=== PATIENT | male | born 1950 | race African-American/Black ===

== ENCOUNTER → 2017-06-18 | Outpatient (CLI) | payer MEDICARE, OTHER ==
[~2017-06-18] MED LIST: ALBUTEROL SULF 2.5 MG/0.5ML(0.5%) NEB SOLN ONE
== END ==
LOC: RT 08:17
PROVIDERS: ATTEND Internal Medicine Pulmonary Disease
DX: J44.9 Chronic obstructive pulmonary disease, unspecified (principal)
CPT/HCPCS: 94060; 94640

== ENCOUNTER → 2017-09-07 | Outpatient (CLI) | payer MEDICARE, OTHER ==
[2017-09-07 10:15] LABS: Basophils # (auto) 0.1 uL; Basophils % (auto) 1.4 % (0.0-2.0); Eosinophils # (auto) 0.4 uL; Eosinophils % (auto) 6.4 % (0.0-7.0); Hemoglobin 16.1 g/dL (13.5-17.5); Lymphocytes # (auto) 1.5 uL; Lymphocytes % (auto) 25.7 % (10.0-50.0); Mean Corpuscular Hemoglobin 32.8 pg (28.0-32.0); Mean Corpuscular Hgb Conc. 34.1 g/dL (32.0-36.0); Monocytes # (auto) 0.8 uL; Monocytes % (auto) 13.1 % (0.0-12.0); Neutrophils # (auto) 3.1 uL; Neutrophils % (auto) 53.4 % (37.0-80.0); Platelet Count (auto) 247 10^3/uL (140-450); Red Cell Distribution Width 13.6 % (11.8-14.3); White Blood Cell 5.9 10^3/uL (4.4-10.8)
[2017-09-07 10:37] LABS: Albumin 3.6 g/dL (3.4-5.0); BUN/Creatinine Ratio 12.3; Bilirubin, Total 0.4 mg/dL (0.2-1.0); Calcium 8.9 mg/dL (8.5-10.1); Potassium 4.1 mmol/L (3.5-5.1); Total Protein 7.4 g/dL (6.4-8.2)
[2017-09-07 10:50] LABS: Urine Blood Negative /uL (Negative); Urine Specific Gravity 1.013 (1.001-1.035)
== END | disposition home or self-care (01) ==
LOC: LAB 09:53
PROVIDERS: ATTEND Nurse Practitioner
DX: E78.5 Hyperlipidemia, unspecified (principal); R35.1 Nocturia; R73.09 Other abnormal glucose
CPT/HCPCS: 36415; 80053; 80061; 81003; 83036; 84153; 84443; 85025

== ENCOUNTER → 2017-10-08 | Outpatient (CLI) | payer MEDICARE, OTHER ==
[2017-10-08 09:12] LABS: Basophils # (auto) 0.1 uL; Basophils % (auto) 1.1 % (0.0-2.0); Eosinophils # (auto) 0.4 uL; Eosinophils % (auto) 6.5 % (0.0-7.0); Hematocrit 49.1 % (41.0-53.0); Hemoglobin 16.3 g/dL (13.5-17.5); Lymphocytes # (auto) 1.7 uL; Lymphocytes % (auto) 25.8 % (10.0-50.0); Mean Corpuscular Hemoglobin 32.1 pg (28.0-32.0); Mean Corpuscular Hgb Conc. 33.2 g/dL (32.0-36.0); Mean Corpuscular Volume 96.7 fL (80.0-100.0); Monocytes # (auto) 0.8 uL; Neutrophils # (auto) 3.7 uL; Neutrophils % (auto) 54.6 % (37.0-80.0); Nucleated Red Blood Cells % 0.1 %; Platelet Count (auto) 242 10^3/uL (140-450); Red Blood Cells 5.08 10^6/uL (4.5-5.90); Red Cell Distribution Width 13.6 % (11.8-14.3); White Blood Cell 6.7 10^3/uL (4.4-10.8)
== END | disposition home or self-care (01) ==
LOC: LAB 08:52
PROVIDERS: ATTEND Nurse Practitioner
DX: E11.9 Type 2 diabetes mellitus without complications (principal); R19.7 Diarrhea, unspecified; J44.9 Chronic obstructive pulmonary disease, unspecified; M19.90 Unspecified osteoarthritis, unspecified site; R79.89 Other specified abnormal findings of blood chemistry; E78.5 Hyperlipidemia, unspecified
CPT/HCPCS: 36415; 85025; 86141

== ENCOUNTER → 2017-10-22 | Outpatient (CLI) | payer MEDICARE, OTHER | LOC: LAB 11:31 | PROVIDERS: ATTEND Nurse Practitioner | DX: E11.9 Type 2 diabetes mellitus without complications (principal); R19.7 Diarrhea, unspecified; M19.90 Unspecified osteoarthritis, unspecified site | CPT/HCPCS: 82270 ==

== ENCOUNTER → 2017-10-28 | Outpatient (CLI) | payer MEDICARE, OTHER | END | disposition home or self-care (01) | LOC: LAB 15:41 | PROVIDERS: ATTEND Family Medicine | DX: E11.9 Type 2 diabetes mellitus without complications (principal); M19.90 Unspecified osteoarthritis, unspecified site | CPT/HCPCS: 36415; 83036 ==

== ENCOUNTER → 2017-11-11 | Outpatient (CLI) | payer MEDICARE, OTHER | END | disposition home or self-care (01) | LOC: LAB 11:47 | PROVIDERS: ATTEND Family Medicine | DX: E11.9 Type 2 diabetes mellitus without complications (principal); J44.9 Chronic obstructive pulmonary disease, unspecified | CPT/HCPCS: 36415; 82565; 84520 ==

== ENCOUNTER 2018-01-02 10:48 | Emergency (ER) | payer MEDICARE, OTHER ==
[~2018-01-02] VITALS: Ht 172.7 cm; Wt 83.9 kg
[2018-01-02] MEDS ORDERED: METHOCARBAMOL 500 MG TAB PO ONE (12:45)
[2018-01-02] MEDS ORDERED: HYDROcodone-ACET 10/325MG TAB PO ONE (12:45)
[2018-01-02 14:21] VITALS: BP 116/69
[2018-01-02] MEDS ORDERED: KETOROLAC TROMETH 30 MG/ML 1ML VIAL IM ONE (14:45)
== END 2018-01-02 15:21 | disposition home or self-care (01) ==
LOC: ER 10:48
DX: M48.061 Spinal stenosis, lumbar region without neurogenic claudication (principal); J44.9 Chronic obstructive pulmonary disease, unspecified; M19.90 Unspecified osteoarthritis, unspecified site; Z88.8 Allergy status to other drugs, medicaments and biological substances
CPT/HCPCS: 72131; 93005; 96372; 99284; J1885

== ENCOUNTER → 2018-09-26 | Outpatient (CLI) | payer MEDICARE, OTHER ==
[2018-09-26 08:44] LABS: Urine WBC None Seen /hpf (0 - 3)
[2018-09-26 08:52] LABS: Basophils # (auto) 0.1 uL; Basophils % (auto) 0.9 % (0.0-2.0); Eosinophils # (auto) 0.2 uL; Eosinophils % (auto) 2.8 % (0.0-7.0); Hematocrit 46.4 % (41.0-53.0); Hemoglobin 15.7 g/dL (13.5-17.5); Lymphocytes # (auto) 1.6 uL; Lymphocytes % (auto) 25.3 % (10.0-50.0); Mean Corpuscular Hemoglobin 33.1 pg (28.0-32.0); Mean Corpuscular Hgb Conc. 33.9 g/dL (32.0-36.0); Mean Corpuscular Volume 97.6 fL (80.0-100.0); Monocytes # (auto) 0.9 uL; Monocytes % (auto) 13.3 % (0.0-12.0); Neutrophils # (auto) 3.7 uL; Neutrophils % (auto) 57.7 % (37.0-80.0); Platelet Count (auto) 218 10^3/uL (140-450); Red Blood Cells 4.75 10^6/uL (4.5-5.90); Red Cell Distribution Width 13.8 % (11.8-14.3); White Blood Cell 6.4 10^3/uL (4.4-10.8)
[2018-09-26 08:53] LABS: Urine Bacteria FEW /hpf (None Seen); Urine Blood Negative /uL (Negative); Urine Specific Gravity 1.011 (1.001-1.035)
[2018-09-26 09:11] LABS: Albumin 3.5 g/dL (3.4-5.0); Calcium 8.9 mg/dL (8.5-10.1)
[2018-09-26 09:14] LABS: BUN/Creatinine Ratio 10.4; Bilirubin, Total 0.3 mg/dL (0.2-1.0); Total Protein 7.1 g/dL (6.4-8.2)
== END | disposition home or self-care (01) ==
LOC: LAB 08:02
PROVIDERS: ATTEND Nurse Practitioner
DX: E78.5 Hyperlipidemia, unspecified (principal)
CPT/HCPCS: 36415; 80053; 80061; 81001; 84443; 85025

== ENCOUNTER → 2019-03-23 | Outpatient (CLI) | payer MEDICARE, OTHER ==
[2019-03-23 09:10] LABS: Urine Bacteria NONE SEEN /hpf (None Seen); Urine Blood Negative /uL (Negative); Urine Specific Gravity 1.011 (1.001-1.035); Urine WBC <1 /hpf (0 - 3)
[2019-03-23 09:21] LABS: Basophils # (auto) 0.1 uL; Basophils % (auto) 1.2 % (0.0-2.0); Eosinophils # (auto) 0.2 uL; Eosinophils % (auto) 3.6 % (0.0-7.0); Hematocrit 48.7 % (41.0-53.0); Hemoglobin 16.5 g/dL (13.5-17.5); Lymphocytes # (auto) 1.6 uL; Lymphocytes % (auto) 26.8 % (10.0-50.0); Mean Corpuscular Volume 97.3 fL (80.0-100.0); Monocytes # (auto) 0.8 uL; Monocytes % (auto) 12.4 % (0.0-12.0); Neutrophils # (auto) 3.4 uL; Platelet Count (auto) 231 10^3/uL (140-450); Red Cell Distribution Width 14.5 % (11.8-14.3); White Blood Cell 6.1 10^3/uL (4.4-10.8)
[2019-03-23 09:39] LABS: Albumin 3.5 g/dL (3.4-5.0); BUN/Creatinine Ratio 14.8; Calcium 9.1 mg/dL (8.5-10.1); Potassium 4.1 mmol/L (3.5-5.1)
[2019-03-23 09:42] LABS: Bilirubin, Total 0.5 mg/dL (0.2-1.0); Total Protein 7.3 g/dL (6.4-8.2)
== END | disposition home or self-care (01) ==
LOC: LAB 08:32
PROVIDERS: ATTEND Nurse Practitioner
DX: E78.5 Hyperlipidemia, unspecified (principal); R79.89 Other specified abnormal findings of blood chemistry
CPT/HCPCS: 36415; 80053; 80061; 81001; 83036; 84443; 85025

== ENCOUNTER → 2019-05-08 | Outpatient (CLI) | payer MEDICARE, OTHER | END | disposition home or self-care (01) | LOC: RT 08:39 | PROVIDERS: ATTEND Internal Medicine Pulmonary Disease | DX: J44.9 Chronic obstructive pulmonary disease, unspecified (principal) | CPT/HCPCS: 94060; J7611 ==

== ENCOUNTER 2022-04-13 08:20 | Inpatient (IN) | payer MEDICARE, OTHER ==
[~2022-04-13] VITALS: Ht 172.7 cm; Wt 73.4 kg
[2022-04-13] MEDS ORDERED: ASPirin 81 mg TAB PO ONE (08:45)
[2022-04-13 08:59] LABS: Basophils # (auto) 0 10 ^3/uL (0-0.2); Basophils % (auto) 0.4 % (0.0-2.0); Eosinophils # (auto) 0.2 10 ^3/uL (0-0.8); Eosinophils % (auto) 2.6 % (0.0-7.0); Hematocrit 45.9 % (41.0-53.0); Hemoglobin 15.1 g/dL (13.5-17.5); Lymphocytes # (auto) 2.1 10 ^3/uL (0.4-5.4); Lymphocytes % (auto) 25.4 % (10.0-50.0); Mean Corpuscular Hemoglobin 31.5 pg (28.0-32.0); Mean Corpuscular Hgb Conc. 32.9 g/dL (32.0-36.0); Mean Corpuscular Volume 95.6 fL (80.0-100.0); Monocytes # (auto) 0.8 10 ^3/uL (0-1.3); Monocytes % (auto) 9.1 % (0.0-12.0); Neutrophils # (auto) 5.1 10 ^3/uL (1.6-8.6); Neutrophils % (auto) 62.5 % (37.0-80.0); Nucleated Red Blood Cells % 0.1 %; Red Blood Cells 4.79 10^6/uL (4.5-5.90); Red Cell Distribution Width 14.8 % (11.8-14.3); White Blood Cell 8.2 10^3/uL (4.4-10.8)
[2022-04-13 09:10] LABS: Albumin 3.4 g/dL (3.4-5.0); Calcium 8.8 mg/dL (8.5-10.1); Potassium 4.1 mmol/L (3.5-5.1)
[2022-04-13 09:14] LABS: Bilirubin, Total 0.6 mg/dL (0.2-1.0); Total Protein 6.6 g/dL (6.4-8.2)
[2022-04-13 11:24] LABS: BUN/Creatinine Ratio 16.8
[2022-04-13] MEDS ORDERED: NITROGLYCERIN 0.4 MG SL TAB SL PRN (13:45)
[2022-04-13] MEDS ORDERED: hydrALAZINE HCL 20 MG/ML VL IV PRN (13:45)
[2022-04-13] MEDS ORDERED: MORPHINE SULFATE INJ 2 MG/ml SYRG IV PRN (13:45)
[2022-04-13] MEDS ORDERED: DEXTROSE (50%) 50ML SYRG IV PRN (14:00)
[2022-04-13 14:29] LABS: Cholesterol 126 mg/dL (< 200)
[2022-04-13 14:31] LABS: HDL Cholesterol 42 mg/dL (40-59); LDL Cholesterol 84 mg/dL (< 100); Triglycerides 74 mg/dL (< 150)
[2022-04-13] MEDS: InsuLIN REG 1unit/0.01ml Soln (100units/ml) SC SCH ×2 (17:00→22:17)
[2022-04-13] MEDS: ACCU-CHEK COMFORT CURVE STRIP VI SCH ×2 (17:08→22:13)
[2022-04-13 18:39] LABS: INR 0.98 (0.9-1.15)
[2022-04-13 19:38] LABS: Urine Bacteria NONE SEEN /hpf (None Seen); Urine Blood Negative /uL (Negative); Urine Specific Gravity 1.008 (1.001-1.035); Urine WBC <1 /hpf (0 - 3)
[2022-04-13 22:00] VITALS: BP 108/64
[2022-04-13] MEDS: ATORVASTATIN 20 MG TAB PO SCH (22:18)
[2022-04-13 22:48] VITALS: BP 108/64
[2022-04-13] MEDS ORDERED: TEMAZEPAM 15 MG CAP PO ONE (23:00)
[2022-04-13] MEDS ORDERED: SIMV-8 PO (23:04)
[2022-04-13] MEDS ORDERED: ATEN50TA PO (23:04)
[2022-04-13] MEDS ORDERED: CLON0.5T3 PO (23:04)
[2022-04-13] MEDS ORDERED: FLUT500M2 INH (23:04)
[2022-04-13] MEDS ORDERED: TAMS0.4C36 PO (23:04)
[2022-04-13] MEDS ORDERED: PANT40T PO (23:04)
[2022-04-13] MEDS ORDERED: ASPI81CH74 PO (23:04)
[2022-04-13] MEDS ORDERED: TIOT17SP INH (23:04)
[2022-04-14 05:00] VITALS: BP 109/66
[2022-04-14 06:10] LABS: Basophils # (auto) 0 10 ^3/uL (0-0.2); Basophils % (auto) 0.5 % (0.0-2.0); Eosinophils # (auto) 0.2 10 ^3/uL (0-0.8); Eosinophils % (auto) 2.7 % (0.0-7.0); Hematocrit 43.8 % (41.0-53.0); Hemoglobin 14.6 g/dL (13.5-17.5); Lymphocytes % (auto) 25.1 % (10.0-50.0); Mean Corpuscular Hgb Conc. 33.4 g/dL (32.0-36.0); Mean Corpuscular Volume 95.8 fL (80.0-100.0); Monocytes # (auto) 0.9 10 ^3/uL (0-1.3); Monocytes % (auto) 11.3 % (0.0-12.0); Neutrophils # (auto) 4.9 10 ^3/uL (1.6-8.6); Neutrophils % (auto) 60.4 % (37.0-80.0); Red Blood Cells 4.58 10^6/uL (4.5-5.90); Red Cell Distribution Width 14.9 % (11.8-14.3)
[2022-04-14 06:22] LABS: Potassium 4.1 mmol/L (3.5-5.1)
[2022-04-14] MEDS: InsuLIN REG 1unit/0.01ml Soln (100units/ml) SC SCH ×4 (06:29→21:55)
[2022-04-14] MEDS: ACCU-CHEK COMFORT CURVE STRIP VI SCH ×4 (06:29→21:54)
[2022-04-14 06:36] LABS: Albumin 3.1 g/dL (3.4-5.0); Bilirubin, Total 0.5 mg/dL (0.2-1.0); Calcium 8.9 mg/dL (8.5-10.1); Total Protein 6.7 g/dL (6.4-8.2)
[2022-04-14] MEDS ORDERED: ADENOSINE 69 MG in GIVE UN-DILUTED 0 ML IV STA (08:17)
[2022-04-14 08:30] VITALS: BP 109/63
[2022-04-14] MEDS ORDERED: REGADENOSON 0.4 MG/5 ML SYRG IV ONE (08:30)
[2022-04-14 08:39] VITALS: BP 130/67
[2022-04-14] MEDS: ASPirin 81 mg TAB PO SCH (09:56)
[2022-04-14 12:20] VITALS: BP 113/68
[2022-04-14 16:25] VITALS: BP 125/69
[2022-04-14] MEDS ORDERED: ALBUTEROL SULF 2.5 MG/0.5ML(0.5%) NEB SOLN NEB PRN (21:00)
[2022-04-14] MEDS: ATORVASTATIN 20 MG TAB PO SCH (21:54)
[2022-04-14 22:00] VITALS: BP 93/69
[2022-04-14] MEDS ORDERED: TEMAZEPAM 15 MG CAP PO ONE (22:45)
[2022-04-15 03:13] VITALS: BP 93/69
[2022-04-15 05:00] VITALS: BP 98/50
[2022-04-15] MEDS: ACCU-CHEK COMFORT CURVE STRIP VI SCH ×2 (06:35→11:30)
[2022-04-15] MEDS: InsuLIN REG 1unit/0.01ml Soln (100units/ml) SC SCH ×2 (06:35→11:30)
[2022-04-15 08:25] VITALS: BP 111/52
[2022-04-15] MEDS: ASPirin 81 mg TAB PO SCH (09:42)
[2022-04-15 12:20] VITALS: BP 117/70
[2022-04-15 14:38] VITALS: BP 111/65
== END 2022-04-15 17:19 | disposition home or self-care (01) | DRG 303 ==
LOC: ER 08:20 → TELE 13:41 → TELE-WESTW 21:35
PROVIDERS: ADMIT Registered Nurse; ATTEND Family Medicine
DX: I25.10 Atherosclerotic heart disease of native coronary artery without angina pectoris (principal); E78.5 Hyperlipidemia, unspecified; Z20.822 Contact with and (suspected) exposure to COVID-19; E03.9 Hypothyroidism, unspecified; M19.90 Unspecified osteoarthritis, unspecified site; N18.2 Chronic kidney disease, stage 2 (mild); I44.0 Atrioventricular block, first degree; E11.22 Type 2 diabetes mellitus with diabetic chronic kidney disease; E78.00 Pure hypercholesterolemia, unspecified; I12.9 Hypertensive chronic kidney disease with stage 1 through stage 4 chronic kidney disease, or unspecified chronic kidney disease; J44.9 Chronic obstructive pulmonary disease, unspecified; Z82.49 Family history of ischemic heart disease and other diseases of the circulatory system; Z83.3 Family history of diabetes mellitus; Z87.891 Personal history of nicotine dependence; Z79.899 Other long term (current) drug therapy; Z90.49 Acquired absence of other specified parts of digestive tract
CPT/HCPCS: 36415; 71046; 78452; 80053; 80061; 81001; 82962; 83036; 84443; 84484; 85025; 85379; 85610; 93005; 93017; 93306; 94640; G0378; J0153; J1815

== ENCOUNTER 2024-10-30 09:26 | Inpatient (IN) | payer OTHER, MEDICARE ==
[~2024-10-30] VITALS: Ht 170.2 cm; Wt 79.6 kg
[~2024-10-30 09:26] MED LIST changes: -ALBUTEROL SULF 2.5 MG/0.5ML(0.5%) NEB SOLN ONE; +ASPI81CH74 PO; +ATEN50TA PO; +CLON0.5T3 PO; +FLUT500M2 INH; +PANT40T PO; +SIMV20TA20 PO; +TAMS0.4C39 PO; +TIOT17SP INH
[2024-10-30 10:00] VITALS: RESP 20
[2024-10-30] MEDS: MAGNESIUM SULFATE 1GM/100ML 100 ML IV ONE (10:14)
[2024-10-30 10:22] LABS: Basophils # (auto) 0 10 ^3/uL (0-0.2); Basophils % (auto) 0.3 % (0.0-2.0); Eosinophils # (auto) 0 10 ^3/uL (0-0.8); Hemoglobin 13.2 g/dL (13.5-17.5); Lymphocytes # (auto) 0.2 10 ^3/uL (0.4-5.4); Lymphocytes % (auto) 1.9 % (10.0-50.0); Mean Corpuscular Hemoglobin 32.5 pg (28.0-32.0); Mean Corpuscular Hgb Conc. 34.7 g/dL (32.0-36.0); Mean Corpuscular Volume 93.6 fL (80.0-100.0); Monocytes # (auto) 0.4 10 ^3/uL (0-1.3); Monocytes % (auto) 3.9 % (0.0-12.0); Neutrophils # (auto) 10.5 10 ^3/uL (1.6-8.6); Neutrophils % (auto) 93.9 % (37.0-80.0); Platelet Count (auto) 215 10^3/uL (140-450); Red Blood Cells 4.06 10^6/uL (4.5-5.90); Red Cell Distribution Width 15.7 % (11.8-14.3); White Blood Cell 11.2 10^3/uL (4.4-10.8)
--- NOTE | 2024-10-30 10:26 | ECG ---
[facility] Test Date: 2024-10-30 Test Time: 09:34:50 Pat Name: JUNI HAZEL Department: EMERGENCY Room: [facility] Gender: M It Applications Developer: JAQUELINE : 1950 Requested By: MORGAN ARNDT Order Number: [id number] Reading MD: Juni Nails Measurements Intervals [place] Rate: 111 P: 49 HI: 157 QRS: -61 QRSD: 119 T: 83 QT: 323 QTc: 439 Interpretive Statements Sinus tachycardia Supraventricular bigeminy LAD, consider left anterior fascicular block Electronically Signed On 11-01-2024 22:32:49 PDT by Juni Nails Please click the below link to view image of tracing.
[2024-10-30] MEDS: IPRATROPIUM BROM 0.5 MG/2.5ML INH SOL NEB ONE (10:29)
[2024-10-30] MEDS: ALBUTEROL SULF 2.5 MG/0.5ML(0.5%) NEB SOLN NEB ONE (10:30)
--- NOTE | 2024-10-30 10:30 | ED.PDOC ---
History of Present Illness HPI Comments 73M BIBA w/ prior Hx of COPD, 4L of O2 at home, and sinus Sx which all may be associated to the c/c of SOB. EMS report that the pt was discharged from from a [place] hospital last night due from needing a lung transplant but they informed the pt that there is "no fix, unless there is a lung transplant". Pt went home and had a sudden SOB and took 4 pumps of albuterol which did not help. When EMS arrived on scene the pt had a SAT of the low 90's and when was given 4L of O2, it brought it back up to 96%. 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 PMHx of Arthritis, High Lipid. SHx of Appendectomy. Denies chills, fever, N/V/D, CP or no other associated symptom's, modifiers, recent injuries or sick contacts at this time. Chief Complaint: Shortness of Breath Time Seen by MD: 09:40 Primary Care Provider: TITUS Reviewed Notes: Nurses Notes, Aircraft Layout Worker Notes, Medications, Allergies Allergies: Coded Allergies: Bupropion (Verified Allergy, Severe, 09/06/13) Home Meds Reported Medications Tiotropium [place] Monohydrate (Spiriva Respimat) 2.5 Mcg/Act Spr, 1 PUFF INH DAILY 04/13/22 Fluticasone-Salmeterol (Advair Diskus 500/50) 1 Puff Ih, 1 PUFF INH DAILY 04/13/22 Aspirin (Aspirin 81 Low Dose) 81 Mg Chw, 1 TAB PO DAILY 04/13/22 Pantoprazole Sodium Sesquihydr (Pantoprazole Sodium) 40 Mg Tab, 1 TAB PO DAILY 04/13/22 Tamsulosin Hcl (Tamsulosin Hcl) 0.4 Mg Cap, 2 CAP PO DAILY 04/13/22 Clonazepam (KlonoPIN TABLET) 0.5 Mg Tb, 1 TAB PO PRN 04/13/22 Atenolol (Atenolol) 50 Mg Tab, 1 TAB PO BID 04/13/22 Simvastatin (Simvastatin) 20 Mg Tab, 1 TAB PO DAILY 04/13/22 Information Source: Patient, Emergency Med Personnel Mode of Arrival: EMS Severity: Moderate Timing: Hours Duration: Since onset, Hours Prehospital treatment: Oxygen Past Medical History PAST MEDICAL HISTORY: Arthritis, COPD, High Lipids Surgical History: Appendectomy Surgical History (Other): Sinus Sx Family History Family History: Reviewed,noncontributory to illness, Unknown Social History Smoker: Non-Smoker, Quit Greater Than 1 Year Alcohol: Denies ETOH Use Drugs: Denies Drug Use Lives In: Home Constitutional: denies: chills, diaphoresis, fatigue, fever, malaise, sweats, weakness, others EENTM: denies: blurred vision, double vision, ear bleeding, ear discharge, ear drainage, ear pain, ear ringing, eye pain, eye redness, hearing loss, mouth pain, mouth swelling, nasal discharge, nose bleeding, nose congestion, nose pain, photophobia, tearing, throat pain, throat swelling, voice changes, others Respiratory: reports: shortness of breath; denies: cough, hemoptysis, orthopnea, SOB at rest, SOB with excertion, stridor, wheezing, others Cardiovascular: denies: chest pain, dizzy spells, diaphoresis, Dyspnea on exertion, edema, irregular heart beat, left arm pain, lightheadedness, palpitations, PND, syncope, others Gastrointestinal: denies: abdomen distended, abdominal pain, blood streaked bowels, constipated, diarrhea, dysphagia, difficulty swallowing, hematemesis, melena, nausea, poor appetite, poor fluid intake, rectal bleeding, rectal pain, vomiting, others Genitourinary: denies: burning, dysuria, flank pain, frequency, hematuria, incontinence, penile discharge, penile sore, pain, testicle pain, testicle swelling, urgency, others Neurological: denies: dizziness, fainting, headache, left sided numbness, left sided weakness, numbness, paresthesia, pre-existing deficit, right sided numbness, right sided weakness, seizure, speech problems, tingling, tremors, weakness, others Musculoskeletal: denies: back pain, gout, joint pain, joint swelling, muscle pain, muscle stiffness, neck pain, others Integumetry: denies: bruises, change in color, change in hair/nails, dryness, laceration, lesions, lumps, rash, wounds, others Allergic/Immunocompromised: denies: Difficulty Healing, Frequent Infections, Hives, Itching, others Hematologic/Lymphatic: denies: anemia, blood clots, easy bleeding, easy bruising, swollen glands, others Endocrine: denies: excessive hunger, excessive sweating, excessive thirst, excessive urination, flushing, intolerance to cold, intolerance to heat, unexplained weight gain, unexplained weight loss, others Psychiatric: denies: anxiety, bipolar disorder, depression, hopeless, panic disorder, schizophrenia, sleepless, suicidal, others All Other Systems: Reviewed and Negative Physical Exam General Appearance: Moderate Distress, Normal HEENT: Normal ENT Inspection, Pharynx Normal, TMs Normal Neck: Full Range of Motion, Non-Tender, Normal, Normal Inspection Respiratory: Accessory Muscle Use, Chest Non-Tender, Respiratory Distress, Wheezing Cardiovascular: No Edema, No JVD, No Murmur, No Gallop, Normal Peripheral Pulses, Regular Rate/Rhythm Breast Exam: Deferred Gastrointestinal: No Organomegaly, Non Tender, No Pulsatile Mass, Normal Bowel Sounds, Soft Genitalia: Deferred Pelvic: Deferred Rectal: Deferred Extremities: No calf tenderness, Normal capillary refill, Normal inspection, Normal range of motion, Non-tender, No pedal edema Musculoskeletal : Apperance: Normal Neurologic: Alert, barrel tester and drainer II-XII nml as Tested, No Motor Deficits, Normal Affect, Normal Mood, No Sensory Deficits Cerebellar Function: NOT DONE Reflexes: NOT DONE Skin: Dry, Normal Color, Warm Lymphatic: No Adenopathy Was a procedure done? Was a procedure done?: No Differential Dx Considerations may include: COPD Electrolyte imbalance X-Ray, Labs, Meds, VS Vital Signs Date Time Temp Pulse Resp B/P (MAP) Pulse Ox O2 Delivery O2 Flow Rate FiO2 10/30/24 10:30 18 95 Nasal Cannula* 4 36 10/30/24 10:01 97.6 99 20 137/74 (95) 95 97.6 10/30/24 10:01 99 22 95 Nasal Cannula 4.0 10/30/24 10:00 20 Room Air* 3 N/A Nasal Cannula* 10/30/24 09:34 94 Nasal Cannula* 4 36 10/30/24 09:34 111 10/30/24 09:27 98.4 118 24 131/81 (98) 94 98.4 Lab Test 10/30/24 10:11 Range/Units White Blood Count 11.2 H 4.4-10.8 10^3/uL Red Blood Count 4.06 L 4.5-5.90 10^6/uL Hemoglobin 13.2 L 13.5-17.5 g/dL Hematocrit 38.0 L 41.0-53.0 % Mean Corpuscular Volume 93.6 80.0-100.0 fL Mean Corpuscular Hemoglobin 32.5 H 28.0-32.0 pg Mean Corpuscular Hemoglobin Concent 34.7 32.0-36.0 g/dL Red Cell Distribution Width 15.7 H 11.8-14.3 % Platelet Count 215 140-450 10^3/uL Mean Platelet Volume 6.6 L 6.9-10.8 fL Neutrophils (%) (Auto) 93.9 H 37.0-80.0 % Lymphocytes (%) (Auto) 1.9 L 10.0-50.0 % Monocytes (%) (Auto) 3.9 0.0-12.0 % Eosinophils (%) (Auto) 0.0 0.0-7.0 % Basophils (%) (Auto) 0.3 0.0-2.0 % Neutrophils # (Auto) 10.5 H 1.6-8.6 10 ^3/uL Lymphocytes # (Auto) 0.2 L 0.4-5.4 10 ^3/uL Monocytes # (Auto) 0.4 0-1.3 10 ^3/uL Eosinophils # (Auto) 0 0-0.8 10 ^3/uL Basophils # (Auto) 0 0-0.2 10 ^3/uL Nucleated Red Blood Cells 0.0 % Sodium Level 140 136-145 mmol/L Potassium Level 3.9 3.5-5.1 mmol/L Chloride Level 106 98-107 mmol/L Carbon Dioxide Level 22 20-31 mmol/L Anion Gap 12 5-15 Blood Urea Nitrogen 17 9-23 mg/dL Creatinine 1.02 0.700-1.30 mg/dL Glomerular Filtration Rate Calc 77 >90 mL/min BUN/Creatinine Ratio 16.7 10.0-20.0 Serum Glucose 145 H 74-106 mg/dL Calcium Level 10.2 8.7-10.4 mg/dL Troponin I High Sensitivity 5 </=54 ng/L Current Medications Medications (Trade) Dose Ordered Sig/Guillermo Route Start Time Stop Time Status Last Admin Albuterol (Ventolin Medneb) 5 mg ONCE ONCE NEB 10/30/24 09:45 10/30/24 09:46 DC 10/30/24 10:30 Ipratropium [place] (Atrovent Medneb) 0.5 mg ONCE ONCE NEB 10/30/24 09:45 10/30/24 09:46 DC 10/30/24 10:29 Magnesium Sulfate/ Dextrose 100 ml @ 100 mls/hr ONCE ONCE IV 10/30/24 09:45 10/30/24 10:44 DC 10/30/24 10:14 Patient alert. Complaining of shortness a breath. Blood sugar slightly elevated. Was given breathing treatment. WBC elevated. Possible pneumonitis. Waiting for lung transplant. Was given steroid. Explained to the patient. Continue to monitor. EKG reviewed does not show any acute changes. Cardiac marker within normal limits. Time of 1ST Reevaluation: 10:10 Reevaluation 1ST: Unchanged Patient Education/Counseling: Diagnosis, Treatment, Prognosis Family Education/Counseling: No Family Present Departure 1 Departure Time of Disposition: 11:15 Impression: Primary Impression: Acute respiratory failure Qualified Codes: J96.01 - Acute respiratory failure with hypoxia Additional Impressions: COPD exacerbation Pneumonitis Disposition: ADMITTED INPATIENT Admit to: Med Surg Condition: Guarded Critical Care Note Critical Care Time?: Yes (90 min-critical care time only) Critical care comment: Placed on oxygen continue to monitor Stability Stability form required: No Heart Score Heart Score: Heart Score Response (Comments) Value History Slightly Suspicious 0 EKG Normal 0 Age >65 2 Risk Factors >3 or Hx ASHD 2 Troponin Normal limit 0 Total 4 I personally scribed for MORGAN ARNDT MD ([email or web address]) on 10/30/24 at 10:30. Electronically submitted by Chaim Iyer ([email or web address]). MORGAN ARNDT MD Oct 30, 2024 10:30
[2024-10-30 10:43] LABS: Chloride 106 mmol/L (98-107); Potassium 3.9 mmol/L (3.5-5.1); Sodium 140 mmol/L (136-145)
[2024-10-30 10:44] LABS: Anion Gap 12 (5-15); Calcium 10.2 mg/dL (8.7-10.4); Carbon Dioxide 22 mmol/L (20-31)
[2024-10-30 10:49] LABS: BUN/Creatinine Ratio 16.7 (10.0-20.0); Blood Urea Nitrogen 17 mg/dL (9-23)
[2024-10-30 10:53] LABS: Glucose 145 mg/dL (74-106)
--- NOTE | 2024-10-30 11:28 | DVH ---
EXAM: XY CHEST PORTABLE Indication: sob Technique: Single frontal view of the chest was obtained Comparison: None FINDINGS: Lines and Tubes: None Lungs: No focal consolidation. Pleura: No effusion. No pneumothorax. Cardiomediastinal contours: Unremarkable Bones: No acute osseous abnormality. IMPRESSION: No acute cardiopulmonary disease.
[2024-10-30] MEDS: methylPREDNISolone SOD SUCC 125 MG/2 ML VL IV ONE (11:30)
[2024-10-30] MEDS ORDERED: cefTRIAXone 1GM/50ML D5W 50 ML IV ONE (11:30)
[2024-10-30] MEDS ORDERED: AZITHROMYCIN 500MG/ 250ML 250 ML IV ONE (11:30)
[2024-10-30] MEDS ORDERED: ACETAMINOPHEN 325 MG TAB PO PRN ×2 (14:30→14:45)
[2024-10-30] MEDS ORDERED: HYDROcodone-ACET 5/325MG TAB PO PRN ×2 (14:30→14:45)
[2024-10-30] MEDS ORDERED: IPRATROPIUM BROM 0.5 MG/2.5ML INH SOL NEB SCH ×3 (14:30→14:45)
[2024-10-30] MEDS ORDERED: DOCUSATE SOD 100 MG CAP PO PRN ×2 (14:30→14:45)
[2024-10-30] MEDS ORDERED: methylPREDNISolone SOD SUCC 125 MG/2 ML VL IV SCH ×2 (14:30→14:45)
[2024-10-30] MEDS ORDERED: ONDANSETRON HCL 4 MG/2 ML VIAL IV PRN ×3 (14:30→14:45)
[2024-10-30] MEDS ORDERED: ALBUTEROL SULF 2.5 MG/0.5ML(0.5%) NEB SOLN NEB SCH ×3 (14:30→14:45)
--- NOTE | 2024-10-30 14:44 | DVHHP2 ---
Admitting Diagnosis: Shortness of breaths History of Present Illness 73M BIBA w/ prior Hx of COPD, 4L of O2 at home, and sinus Sx which all may be associated to the c/c of SOB. EMS report that the pt was discharged from from a [place] hospital last night due from needing a lung transplant but they informed the pt that there is "no fix, unless there is a lung transplant". Pt went home and had a sudden SOB and took 4 pumps of albuterol which did not help. When EMS arrived on scene the pt had a SAT of the low 90's and when was given 4L of O2, it brought it back up to 96%. 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 PMHx of Arthritis, High Lipid. SHx of Appendectomy. Denies chills, fever, N/V/D, CP or no other associated symptom's, modifiers, recent injuries or sick contacts at this time. PAST MEDICAL HISTORY: Arthritis, COPD, High Lipids Surgical History: Appendectomy Surgical History (Other): Sinus Sx Family History: Reviewed,noncontributory to illness, Unknown Social History Smoker: Non-Smoker, Quit Greater Than 1 Year Alcohol: Denies ETOH Use Drugs: Denies Drug Use Lives In: Home Patient Family History: FH: diabetes mellitus FHx: heart disease Allergies: Coded Allergies: Bupropion (Verified Allergy, Severe, 09/06/13) Home Meds Reported Medications Tiotropium [place] Monohydrate (Spiriva Respimat) 2.5 Mcg/Act Spr, 1 PUFF INH DAILY 04/13/22 Fluticasone-Salmeterol (Advair Diskus 500/50) 1 Puff Ih, 1 PUFF INH DAILY 04/13/22 Aspirin (Aspirin 81 Low Dose) 81 Mg Chw, 1 TAB PO DAILY 04/13/22 Pantoprazole Sodium Sesquihydr (Pantoprazole Sodium) 40 Mg Tab, 1 TAB PO DAILY 04/13/22 Tamsulosin Hcl (Tamsulosin Hcl) 0.4 Mg Cap, 2 CAP PO DAILY 04/13/22 Clonazepam (KlonoPIN TABLET) 0.5 Mg Tb, 1 TAB PO PRN 04/13/22 Atenolol (Atenolol) 50 Mg Tab, 1 TAB PO BID 04/13/22 Simvastatin (Simvastatin) 20 Mg Tab, 1 TAB PO DAILY 04/13/22 Vital Signs Vital Signs Date Time Temp Pulse Resp B/P (MAP) Pulse Ox O2 Delivery O2 Flow Rate FiO2 10/30/24 12:28 106 16 124/68 (86) 10/30/24 10:30 95 Nasal Cannula* 4 36 10/30/24 10:01 97.6 97.6 Physical Exam Generally-73 years old male, frail, sitting on chair. Moderate distress. On Nasal cannula HEENT-atraumatic normocephalic Heart-regular rate and rhythm Lungs decreased breath sounds bilateral lower lung manuel Abdomen soft nontender nondistended Musculoskeletal-no edema cyanosis Neuro-AO x3, no focal deficits Results Labs Test 10/30/24 10:11 Range/Units White Blood Count 11.2 H 4.4-10.8 10^3/uL Red Blood Count 4.06 L 4.5-5.90 10^6/uL Hemoglobin 13.2 L 13.5-17.5 g/dL Hematocrit 38.0 L 41.0-53.0 % Mean Corpuscular Volume 93.6 80.0-100.0 fL Mean Corpuscular Hemoglobin 32.5 H 28.0-32.0 pg Mean Corpuscular Hemoglobin Concent 34.7 32.0-36.0 g/dL Red Cell Distribution Width 15.7 H 11.8-14.3 % Platelet Count 215 140-450 10^3/uL Mean Platelet Volume 6.6 L 6.9-10.8 fL Neutrophils (%) (Auto) 93.9 H 37.0-80.0 % Lymphocytes (%) (Auto) 1.9 L 10.0-50.0 % Monocytes (%) (Auto) 3.9 0.0-12.0 % Eosinophils (%) (Auto) 0.0 0.0-7.0 % Basophils (%) (Auto) 0.3 0.0-2.0 % Neutrophils # (Auto) 10.5 H 1.6-8.6 10 ^3/uL Lymphocytes # (Auto) 0.2 L 0.4-5.4 10 ^3/uL Monocytes # (Auto) 0.4 0-1.3 10 ^3/uL Eosinophils # (Auto) 0 0-0.8 10 ^3/uL Basophils # (Auto) 0 0-0.2 10 ^3/uL Nucleated Red Blood Cells 0.0 % Sodium Level 140 136-145 mmol/L Potassium Level 3.9 3.5-5.1 mmol/L Chloride Level 106 98-107 mmol/L Carbon Dioxide Level 22 20-31 mmol/L Anion Gap 12 5-15 Blood Urea Nitrogen 17 9-23 mg/dL Creatinine 1.02 0.700-1.30 mg/dL Glomerular Filtration Rate Calc 77 >90 mL/min BUN/Creatinine Ratio 16.7 10.0-20.0 Serum Glucose 145 H 74-106 mg/dL Calcium Level 10.2 8.7-10.4 mg/dL Troponin I High Sensitivity 5 </=54 ng/L Primary Diagnosis Acute hypoxic respiratory failure likely due to COPD exacerbation possible superimposed pneumonia Plan Status post Solu-Medrol 25 mg IV. Continue Solu-Medrol q.6 hours standing Albuterol and ipratropium nebulizer q.6 standing Ceftriaxone and azithromycin for empiric antibiotics for possible pneumonia Check sputum culture Check CRP and procalcitonin if low suspicion for infection discontinue ceftriaxone and continue azithromycin for anti-inflammatory effect Oxygen saturation goal greater than 92% Full code Lovenox for DVT prophylaxis PPI for GI prophylaxis Cardiac diet Plan discussed with: Patient Problems List: (1) Pneumonia (2) COPD exacerbation Status: Acute (3) Acute respiratory failure Status: Acute Date of Service: Oct 30, 2024 Billing Provider: ALISHA SLATER MD Common Visit Codes: [id number] INP/OBS CARE (HIGH) ALISHA SLATER MD Oct 30, 2024 14:44
[2024-10-30 16:44] VITALS: BP 124/68; PULSE 106; RESP 16; TEMP 97.6; O2SAT 95
[2024-10-30] MEDS: methylPREDNISolone SOD SUCC 125 MG/2 ML VL IV SCH (17:22)
[2024-10-30 17:37] VITALS: BP 140/76; PULSE 78; PULSE 80; RESP 20; TEMP 97.6; O2SAT 98
[2024-10-30] MEDS: TAMSULOSIN HYDROCHLORIDE 0.4 MG CAP PO SCH (18:03)
[2024-10-30 18:18] VITALS: PULSE 100; PULSE 104; RESP 18; RESP 20; O2SAT 5; O2SAT 95; O2SAT 97
[2024-10-30 19:00] VITALS: BP 128/69; PULSE 107; PULSE 113; RESP 16; RESP 18; TEMP 98.7; O2SAT 95
[2024-10-30 20:00] VITALS: PULSE 103; RESP 18; O2SAT 97
[2024-10-30] MEDS: cefTRIAXone 1GM/50ML D5W 50 ML IV ONE (20:19)
[2024-10-30] MEDS: ALBUTEROL SULF 2.5 MG/0.5ML(0.5%) NEB SOLN NEB SCH (20:43)
[2024-10-30] MEDS: IPRATROPIUM BROM 0.5 MG/2.5ML INH SOL NEB SCH (20:44)
[2024-10-30] MEDS: AZITHROMYCIN 500MG/ 250ML 250 ML IV SCH (21:36)
[2024-10-30] MEDS: ATENOLOL 25 MG TAB PO SCH (21:45)
[2024-10-30] MEDS: ATORVASTATIN 20 MG TAB PO SCH (21:46)
[2024-10-30] MEDS: SODIUM CHLOR 0.9% PF (SALINE LOCK) 10ML VIAL/SYR IV SCH (21:46)
[2024-10-30] MEDS: TEMAZEPAM 15 MG CAP PO ONE (21:46)
[2024-10-30] MEDS ORDERED: SODIUM CHLOR 0.9% PF (SALINE LOCK) 10ML VIAL/SYR IV SCH (22:00)
[2024-10-31] VITALS (20 sets, daily range): BP systolic 102–128; BP diastolic 54–72; PULSE 55–101; RESP 16–19; TEMP 97.5–98.1; O2SAT 91–100
[2024-10-31 05:43] LABS: Basophils # (auto) 0 10 ^3/uL (0-0.2); Basophils % (auto) 0.1 % (0.0-2.0); Eosinophils # (auto) 0 10 ^3/uL (0-0.8); Hematocrit 36.9 % (41.0-53.0); Hemoglobin 12.4 g/dL (13.5-17.5); Lymphocytes # (auto) 0.3 10 ^3/uL (0.4-5.4); Lymphocytes % (auto) 2.7 % (10.0-50.0); Mean Corpuscular Hemoglobin 31.7 pg (28.0-32.0); Mean Corpuscular Hgb Conc. 33.5 g/dL (32.0-36.0); Mean Corpuscular Volume 94.5 fL (80.0-100.0); Monocytes # (auto) 0.2 10 ^3/uL (0-1.3); Monocytes % (auto) 2.3 % (0.0-12.0); Neutrophils # (auto) 9.9 10 ^3/uL (1.6-8.6); Neutrophils % (auto) 94.9 % (37.0-80.0); Nucleated Red Blood Cells % 0.1 %; Platelet Count (auto) 199 10^3/uL (140-450); Red Cell Distribution Width 15.7 % (11.8-14.3); White Blood Cell 10.4 10^3/uL (4.4-10.8)
[2024-10-31 06:01] LABS: Alanine Aminotransferase 34 U/L (7-40); Albumin 4.1 g/dL (3.2-4.8); Anion Gap 7 (5-15); Aspartate Aminotransferase 27 U/L (13-40); BUN/Creatinine Ratio 15.6 (10.0-20.0); Bilirubin, Total 0.4 mg/dL (0.2-1.0); Blood Urea Nitrogen 14 mg/dL (9-23); Calcium 9.2 mg/dL (8.7-10.4); Carbon Dioxide 28 mmol/L (20-31); Chloride 107 mmol/L (98-107); Glucose 149 mg/dL (74-106); Potassium 4.4 mmol/L (3.5-5.1); Sodium 142 mmol/L (136-145); Total Protein 5.9 g/dL (5.7-8.2)
[2024-10-31 06:02] LABS: Alkaline Phosphatase 36 U/L (46-116)
[2024-10-31] MEDS: ASPirin 81 mg TAB PO SCH (08:41)
[2024-10-31] MEDS: PANTOPRAZOLE 40 MG/10 ML VIAL INJ IV SCH (08:41)
[2024-10-31] MEDS: ENOXAPARIN SOD 40 MG/0.4 ML SYRINGE SC SCH (08:42)
[2024-10-31] MEDS: cefTRIAXone 1GM/50ML D5W 50 ML IV SCH (08:57)
[2024-10-31] MEDS ORDERED: cefTRIAXone 1GM/50ML D5W 50 ML IV SCH ×2 (10:00)
[2024-10-31] MEDS ORDERED: PANTOPRAZOLE 40 MG TAB PO SCH (10:00)
[2024-10-31] MEDS ORDERED: AZITHROMYCIN 500MG/ 250ML 250 ML IV SCH ×2 (10:00)
[2024-10-31] MEDS ORDERED: ENOXAPARIN SOD 40 MG/0.4 ML SYRINGE SC SCH ×2 (10:00)
--- NOTE | 2024-10-31 13:31 | DVHPN2 ---
Progress Note Date Seen: Oct 31, 2024 Medical Necessity Reason Pt with a Central, PICC or Fol: No Subjective Patient reports: No new complaints Review of Systems: HEENT:Normal, CVS:Normal, RESPIRATORY:Normal, GI:Normal, :Normal, MSK:Normal, NEURO:Normal Objective vital signs Vital Sign Date Time Temp Pulse Resp B/P (MAP) Pulse Ox O2 Delivery O2 Flow Rate FiO2 10/31/24 12:56 88 16 99 10/31/24 12:50 Nasal Cannula* 4 36 10/31/24 09:00 97.6 102/60 (74) 97.6 Total Intake and Output 10/30/24 10/30/24 10/31/24 15:00 23:00 07:00 Intake Total 450 ml Output Total 220 ml Balance 230 ml medications Current Medications Medications Dose Ordered Sig/Guillermo Route Start Time Stop Time Status Last Admin Dose Admin Tamsulosin HCl 0.4 mg QPM PO 10/30/24 18:00 10/30/24 18:03 0.4 MG Aspirin 81 mg DAILY PO 10/31/24 10:00 10/31/24 08:41 81 MG Atenolol 50 mg BID PO 10/30/24 22:00 10/31/24 08:41 50 MG Patient Own Medication 1 puff DAILY IN 10/31/24 10:00 Hold Atorvastatin Calcium 10 mg HS PO 10/30/24 22:00 10/30/24 21:46 10 MG Sodium Chloride 10 ml Q8HR IV 10/30/24 22:00 10/31/24 05:44 10 ML Ondansetron HCl 4 mg Q4HP PRN IV 10/30/24 14:45 Enoxaparin Sodium 40 mg DAILY SC 10/31/24 10:00 10/31/24 08:42 40 MG Ceftriaxone Sodium 50 ml @ 100 mls/hr DAILY@0900 IV 10/31/24 09:00 10/31/24 08:57 100 MLS/HR Azithromycin 250 ml @ 125 mls/hr DAILY@2100 IV 10/30/24 21:00 10/30/24 21:36 125 MLS/HR Docusate Sodium 100 mg BIDPRN PRN PO 10/30/24 14:45 Acetaminophen 650 mg Q6HP PRN PO 10/30/24 14:45 Acetaminophen/ Hydrocodone Bitart 1 tab Q4HP PRN PO 10/30/24 14:45 Pantoprazole Sodium 40 mg DAILY IV 10/31/24 10:00 10/31/24 08:41 40 MG Albuterol 2.5 mg Q6H NEB 10/30/24 18:00 10/31/24 12:50 2.5 MG Ipratropium Marquez 0.5 mg Q6H NEB 10/30/24 18:00 10/31/24 12:50 0.5 MG Methylprednisolone Sodium Succinate 60 mg Q6H IV 10/31/24 14:45 UNV Examination: GENERAL:Normal, HEENT:Normal, NECK:Normal, LUNGS:Normal, LUNGS:Abnormal (on oxygen), CVS:Normal, ABDOMEN:Normal, MSK:Normal, SKIN:Normal, NEURO:Normal, :Normal laboratory and microbiology Laboratory Tests 10/31/24 05:20 Test 10/31/24 05:20 Range/Units Serum Glucose 149 H 74-106 mg/dL Problem List/Assessment/Plan Problem List/Assessment/Plan #1 acute on chronic resp failure: cont oxygen #2 copd with exacerbation: cont meds, bronchodilators #3 ?pneumonia- gram positive/neg #4 htn advance care planning- full code- time spent 19 mins long dw daughter Lesa- explained plan of care for arranging transfer to [facility] Plan discussed with: Patient, Daughter My Orders My Orders Orders - JUAN AREVALO MD Procedure Category Date Status Time Methylprednisolone PHA 10/31/24 Logged Sod Succ (Solu Medrol 14:45 * Insole Bottom Filler CONS 10/31/24 Transmitted Consult Echo 2d Mode Cardiac US 10/31/24 Logged DOP 13:17 Urinalysis LAB 10/31/24 Logged 13:27 Date of Service: Oct 31, 2024 Billing Provider: JUAN AREVALO MD Common Visit Codes: [id number] INP/OBS CARE(HIGH) Secondary Visit Codes: [id number] CARE PLAN 30 MINUTES JUAN AREVALO MD Oct 31, 2024 13:31
[2024-10-31] MEDS: IPRATROPIUM BROM 0.5 MG/2.5ML INH SOL NEB SCH (14:37)
[2024-10-31] MEDS: ALBUTEROL SULF 2.5 MG/0.5ML(0.5%) NEB SOLN NEB SCH (14:37)
[2024-10-31] MEDS: methylPREDNISolone SOD SUCC 125 MG/2 ML VL IV SCH (15:48)
--- NOTE | 2024-10-31 17:04 | DVHSR ---
APPROVED REPORT EXAM: Two-dimensional and M-mode echocardiogram with Doppler and color Doppler. Blood Pressure: 102/60 mmHg INDICATION ?CHF RISK FACTORS Height: 5'7", Weight: 121 DIMENSIONS LVDd4.6 (3.8-5.7cm)LA (2D)4.3 (1.9-4.0cm)Aortic Root3.6 (2.0-3.7cm) LVDs3.3 (2.5-4.0cm)LA (MM) (1.9-4.0cm)Aortic Cusp Exc1.8 (1.5-2.0cm) EF (%) 55.0 (55-70%)Rt. Atrium4.0 (1.9-4.0cm)Asc. Aorta cm IVSd0.9 (0.7-1.1cm)RV (D)4.3 (1.8-2.4cm) PWd1.1 (0.7-1.1cm) Mitral Valve MitralMitral Stenosis E wave0.68m/sMV Mean GR.mmHg A wave1.05m/sMV Peak GR.mmHg E/A ratio0.62D MVAcm2 DECEL [id number] 1/2 Timems Aortic Valve Aortic ValveAortic Stenosis V10.95m/Adam Mean GR.3mmHg V21.20m/Adam Peak GR.6mmHg LVOT Diameter2.4 (1.8-2.4cm)Doppler AVA3.58cm2 Pulmonic Valve V20.88m/s Other Information Technically limited study due to body habitus. Conclusion Normal biventricular size with low normal LV systolic function. LVEF 50-55%. Normal wall motion. Grad e 1 diastolic dysfunction. Mild biatrial enlargement. No significant valvular disease. Trace MR. Mild aortic valve sclerosis. Mild MAC. Unable to assess RVSP due to insufficient TR jet. Normal IVC. No pericardial effusion.
[2024-10-31 18:07] LABS: Urine Bacteria None Seen /hpf (None Seen)
[2024-10-31 18:21] LABS: Urine Blood Negative /uL (Negative); Urine Clarity Clear (Clear); Urine Color Light-Yellow (Yellow); Urine Protein, UAD Negative (Negative); Urine Specific Gravity 1.016 (1.001-1.035); Urine Squamous Epithelial Cell FEW /hpf (<5); Urine Urobilinogen Normal (Negative)
[2024-10-31] MEDS: TEMAZEPAM 15 MG CAP PO ONE (21:21)
[2024-11-01] VITALS (21 sets, daily range): BP systolic 93–156; BP diastolic 52–74; PULSE 60–93; RESP 15–19; TEMP 97.4–98.6; O2SAT 90–100
[2024-11-01 06:46] LABS: Basophils # (auto) 0 10 ^3/uL (0-0.2); Eosinophils # (auto) 0 10 ^3/uL (0-0.8); Hematocrit 34.5 % (41.0-53.0); Hemoglobin 12.2 g/dL (13.5-17.5); Lymphocytes # (auto) 0.2 10 ^3/uL (0.4-5.4); Lymphocytes % (auto) 2.1 % (10.0-50.0); Mean Corpuscular Hemoglobin 32.9 pg (28.0-32.0); Mean Corpuscular Hgb Conc. 35.2 g/dL (32.0-36.0); Mean Corpuscular Volume 93.3 fL (80.0-100.0); Monocytes # (auto) 0.4 10 ^3/uL (0-1.3); Monocytes % (auto) 4.1 % (0.0-12.0); Neutrophils # (auto) 9.7 10 ^3/uL (1.6-8.6); Neutrophils % (auto) 93.8 % (37.0-80.0); Platelet Count (auto) 194 10^3/uL (140-450); Red Cell Distribution Width 15.5 % (11.8-14.3); White Blood Cell 10.3 10^3/uL (4.4-10.8)
[2024-11-01 07:03] LABS: Alanine Aminotransferase 35 U/L (7-40); Alkaline Phosphatase 44 U/L (46-116); Anion Gap 9 (5-15); Aspartate Aminotransferase 23 U/L (13-40); Blood Urea Nitrogen 19 mg/dL (9-23); Calcium 9.4 mg/dL (8.7-10.4); Carbon Dioxide 27 mmol/L (20-31); Chloride 106 mmol/L (98-107); Glucose 224 mg/dL (74-106); Potassium 3.7 mmol/L (3.5-5.1); Sodium 142 mmol/L (136-145); Total Protein 5.8 g/dL (5.7-8.2)
[2024-11-01 07:06] LABS: Bilirubin, Total 0.3 mg/dL (0.2-1.0)
--- NOTE | 2024-11-01 11:38 | DVHDS2 ---
Discharge Summary Date of Admission Oct 30, 2024 at 14:28 Date of Discharge: Nov 01, 2024 Labs/Diagnostic Data: Laboratory Results Test 11/01/24 04:29 10/31/24 17:40 10/30/24 10:11 White Blood Count 10.3 10^3/uL (4.4-10.8) Red Blood Count 3.70 10^6/uL (4.5-5.90) Hemoglobin 12.2 g/dL (13.5-17.5) Hematocrit 34.5 % (41.0-53.0) Mean Corpuscular Volume 93.3 fL (80.0-100.0) Mean Corpuscular Hemoglobin 32.9 pg (28.0-32.0) Mean Corpuscular Hemoglobin Concent 35.2 g/dL (32.0-36.0) Red Cell Distribution Width 15.5 % (11.8-14.3) Platelet Count 194 10^3/uL (140-450) Mean Platelet Volume 6.9 fL (6.9-10.8) Neutrophils (%) (Auto) 93.8 % (37.0-80.0) Lymphocytes (%) (Auto) 2.1 % (10.0-50.0) Monocytes (%) (Auto) 4.1 % (0.0-12.0) Eosinophils (%) (Auto) 0.0 % (0.0-7.0) Basophils (%) (Auto) 0.0 % (0.0-2.0) Neutrophils # (Auto) 9.7 10 ^3/uL (1.6-8.6) Lymphocytes # (Auto) 0.2 10 ^3/uL (0.4-5.4) Monocytes # (Auto) 0.4 10 ^3/uL (0-1.3) Eosinophils # (Auto) 0 10 ^3/uL (0-0.8) Basophils # (Auto) 0 10 ^3/uL (0-0.2) Nucleated Red Blood Cells 0.0 % Sodium Level 142 mmol/L (136-145) Potassium Level 3.7 mmol/L (3.5-5.1) Chloride Level 106 mmol/L (98-107) Carbon Dioxide Level 27 mmol/L (20-31) Anion Gap 9 (5-15) Blood Urea Nitrogen 19 mg/dL (9-23) Creatinine 0.95 mg/dL (0.700-1.30) Glomerular Filtration Rate Calc 83 mL/min (>90) BUN/Creatinine Ratio 20.0 (10.0-20.0) Serum Glucose 224 mg/dL (74-106) Calcium Level 9.4 mg/dL (8.7-10.4) Total Bilirubin 0.3 mg/dL (0.2-1.0) Aspartate Amino Transferase (AST) 23 U/L (13-40) Alanine Aminotransferase (ALT) 35 U/L (7-40) Alkaline Phosphatase 44 U/L (46-116) Total Protein 5.8 g/dL (5.7-8.2) Albumin 4.0 g/dL (3.2-4.8) Urine Color Light-yellow (Yellow) Urine Clarity Clear (Clear) Urine pH 6.0 (5.0-9.0) Urine Specific [place] 1.016 (1.001-1.035) Urine Protein Negative (Negative) Urine Ketones Negative (Negative) Urine Blood Negative /uL (Negative) Urine Nitrite Negative (Negative) Urine Bilirubin Negative (Negative) Urine Urobilinogen Normal mg/dL (Negative) Urine Leukocyte Esterase Negative /uL (Negative) Urine RBC None seen /hpf (0 - 3) Urine Microscopic WBC /HPF (0-3) Urine Squamous Epithelial Cells Few /hpf (<5) Urine Bacteria None seen /hpf (None Seen) Urine Glucose Normal mg/dL (Normal) Troponin I High Sensitivity 5 ng/L (</=54) C-Reactive Protein High Sensitivity 0.17 mg/dL (<1.0) Other Laboratory Tests 11/01/24 04:29 Brief Hx & Hospital Course: SEE DICTATED NOTE Condition at Discharge: Fair Final Diagnosis/Problems List COPD Discharge Disposition: Acute Care Facility Discharge Instruct/Medications Diet: Regular Activity: No Restrictions, As Tolerated Follow [facility]Referral: [facility] Medications: PER OCT Discharge Statement: "Patient was advised to return to the ER or call 911 if any headaches, dizziness, shortness of breath, chest pain, abdominal pain, bleeding, fevers, or worsening of medical condition. Patient was counseled about treatment plan, medications, possible side effects, patientverbalized understanding. All questions were answered to the best of my ability. This discharge took greater then 30 minutes in planning, reviewing documentation, counseling the patient, and discussing with other team members." ASSESSMENT ASSESSMENT Assessment COPD Date of Service: Nov 01, 2024 Billing Provider: JUAN AREVALO MD Common Visit Codes: 07476-QKG/OBS DISCH DAY >30min JUAN AREVALO MD Nov 01, 2024 11:38
--- NOTE | 2024-11-01 12:04 | DVHDS ---
DATE OF DISCHARGE: 11/01/2024 DATE OF TRANSFER: 11/01/2024 HISTORY OF PRESENT ILLNESS: The patient is a 74-year-old gentleman who was admitted with increasing shortness of breath and has history of end-stage COPD, hyperlipidemia and arthritis. HOSPITAL COURSE: The patient had a chest x-ray that showed no acute disease. The patient was hypoxic. He was placed on steroids along with antibiotics. The patient will now be transferred to [facility] where he is a candidate for lung transplant. He will be on medications as per medication reconciliation. Echocardiogram done showed ejection fraction of 50-55%. FINAL DIAGNOSES: Therefore, * Chronic obstructive pulmonary disease with exacerbation. * Acute on chronic respiratory failure. * Questionable pneumonia, gram-positive, gram-negative. * Hypertension. * Arthritis. Time spent in discharge planning and review of plan with the patient, social worker clinical and family was 41 minutes. MD JENIFFER Juarez/TARYN TID: [id number] RECEIPT: [id number]
[2024-11-01] MEDS: MELATONIN 5 MG TAB PO ONE (23:14)
[2024-11-02] VITALS (20 sets, daily range): BP systolic 124–159; BP diastolic 67–83; PULSE 62–107; RESP 17–20; TEMP 97.7–98.6; O2SAT 93–100
[2024-11-02] MEDS: ALBUTEROL SULF 2.5 MG/0.5ML(0.5%) NEB SOLN NEB ONE (03:08)
--- NOTE | 2024-11-02 16:31 | DVHPN2 ---
Progress Note Date Seen: Nov 02, 2024 Medical Necessity Reason Pt with a Central, PICC or Fol: No Subjective Patient reports: No new complaints Review of Systems: HEENT:Normal, CVS:Normal, RESPIRATORY:Normal, GI:Normal, :Normal, MSK:Normal, NEURO:Normal Objective vital signs Vital Sign Date Time Temp Pulse Resp B/P (MAP) Pulse Ox O2 Delivery O2 Flow Rate FiO2 11/02/24 16:22 82 17 159/83 98 4.0 11/02/24 13:15 Nasal Cannula 11/02/24 13:15 36 11/02/24 12:30 97.9 97.9 Total Intake and Output 11/01/24 11/01/24 11/02/24 15:00 23:00 07:00 Intake Total 50 ml 850 ml 1130 ml Output Total 800 ml Balance 50 ml 850 ml 330 ml medications Current Medications Medications Dose Ordered Sig/Guillermo Route Start Time Stop Time Status Last Admin Dose Admin Tamsulosin HCl 0.4 mg QPM PO 10/30/24 18:00 11/01/24 18:04 0.4 MG Aspirin 81 mg DAILY PO 10/31/24 10:00 11/02/24 09:16 81 MG Atenolol 50 mg BID PO 10/30/24 22:00 11/02/24 09:17 50 MG Patient Own Medication 1 puff DAILY IN 10/31/24 10:00 Hold Atorvastatin Calcium 10 mg HS PO 10/30/24 22:00 11/01/24 21:48 10 MG Sodium Chloride 10 ml Q8HR IV 10/30/24 22:00 11/02/24 15:26 10 ML Ondansetron HCl 4 mg Q4HP PRN IV 10/30/24 14:45 Enoxaparin Sodium 40 mg DAILY SC 10/31/24 10:00 11/02/24 09:18 40 MG Ceftriaxone Sodium 50 ml @ 100 mls/hr DAILY@0900 IV 10/31/24 09:00 11/02/24 09:15 100 MLS/HR Azithromycin 250 ml @ 125 mls/hr DAILY@2100 IV 10/30/24 21:00 11/01/24 21:48 125 MLS/HR Docusate Sodium 100 mg BIDPRN PRN PO 10/30/24 14:45 Acetaminophen 650 mg Q6HP PRN PO 10/30/24 14:45 Acetaminophen/ Hydrocodone Bitart 1 tab Q4HP PRN PO 10/30/24 14:45 Pantoprazole Sodium 40 mg DAILY IV 10/31/24 10:00 11/02/24 09:16 40 MG Methylprednisolone Sodium Succinate 60 mg Q6H IV 10/31/24 15:00 11/02/24 15:26 60 MG Albuterol 2.5 mg Q4HWA NEB 10/31/24 14:00 11/02/24 13:15 2.5 MG Ipratropium Paradox 0.5 mg Q4HWA NEB 10/31/24 14:00 11/02/24 13:15 0.5 MG Examination: GENERAL:Normal, HEENT:Normal, NECK:Normal, LUNGS:Normal, LUNGS:Abnormal (on oxygen), CVS:Normal, ABDOMEN:Normal, MSK:Normal, SKIN:Normal, NEURO:Normal, :Normal laboratory and microbiology Laboratory Tests 11/01/24 04:29 Test 11/01/24 04:29 Range/Units Serum Glucose 224 H 74-106 mg/dL Microbiology Date/Time Source Procedure Growth Status 10/31/24 21:25 Sputum Gram Stain - Final Resulted 10/31/24 21:25 Sputum Respiratory Culture - Preliminary Resulted 10/30/24 17:50 Nose MRSA Screen - Final Complete Problem List/Assessment/Plan Problem List/Assessment/Plan #1 acute on chronic resp failure: cont oxygen #2 copd with exacerbation: cont meds, bronchodilators #3 ?pneumonia- gram positive/neg #4 htn #5 anxiety: xanax advance care planning- full code- time spent 19 mins await transfer to [facility] tino dw daughter Lesa- explained plan of care for arranging transfer to [facility] Plan discussed with: Patient My Orders My Orders Orders - JUAN AREVALO MD Procedure Category Date Status Time Pantoprazole Tablet PHA 11/03/24 Verified (Protonix Tablet) 06:00 Azithromycin Tablet PHA 11/03/24 Verified (Zithromax Tablet) 10:00 Alprazolam Tablet PHA 11/02/24 Verified (Xanax Tablet) 16:30 Dietary Evaluation Review Comments: 1) Monitor POC Glu 2) Consider [id number] + cardiac diet 3) Continue current plan of care Expected Outcomes/Goals: Pt will meet >75% estimated needs Fu 3-5 days Date of Service: Nov 02, 2024 Billing Provider: JUAN AREVALO MD Common Visit Codes: [id number] INP/OBS CARE(HIGH) JUAN AREVALO MD Nov 02, 2024 16:31
[2024-11-02] MEDS: ALPRAZolam 0.25 MG TAB PO PRN (21:46)
[2024-11-03] VITALS (16 sets, daily range): BP systolic 104–165; BP diastolic 61–85; PULSE 57–94; RESP 16–18; TEMP 97.8–98.4; O2SAT 93–100
[2024-11-03] MEDS: PANTOPRAZOLE 40 MG TAB PO SCH (05:01)
[2024-11-03] MEDS: AZITHROMYCIN 250 MG TAB PO SCH (09:03)
--- NOTE | 2024-11-03 11:49 | DVHPN2 ---
Subjective The patient is seen and examined at bedside. The patient is waiting to transfer to [facility] today. Reviewed: Care Plan, H&P, Labs, Medications, Previous Orders, Radiology Changes from previous H/P or p: No Changes Objective Vitals Vital Signs Date Time Temp Pulse Resp B/P (MAP) Pulse Ox O2 Delivery O2 Flow Rate FiO2 11/03/24 10:17 89 18 99 11/03/24 10:10 Nasal Cannula 4.0 11/03/24 10:10 36 11/03/24 09:02 104/61 11/03/24 09:00 98.2 98.2 Intake/Output Intake and Output 11/03/24 07:00 Intake Total 1750 ml Output Total 1700 ml Balance 50 ml Intake Oral 1700 ml IV Total 50 ml Output Urine Total 1700 ml General Appearance: Alert, Oriented X3, Cooperative, No acute distress HEENT: Atraumatic, PERRLA, EOMI, Mucous membr. moist/pink Neck: Supple Lungs: Clear to auscultation, Normal air movement Cardiovascular: Regular rate, Normal S1, Normal S2, No murmurs, Gallops, Rubs Abdomen: Normal bowel sounds, Soft, No tenderness Extremities: Normal pulses Neuro: Cranial nerves 3-12 NL Psych/Mental Status: Mental status NL Medications Current Medications Medications Dose Ordered Sig/Guillermo Route Start Time Stop Time Status Last Admin Dose Admin Tamsulosin HCl 0.4 mg QPM PO 10/30/24 18:00 11/02/24 18:01 0.4 MG Aspirin 81 mg DAILY PO 10/31/24 10:00 11/03/24 09:03 81 MG Atenolol 50 mg BID PO 10/30/24 22:00 11/03/24 09:02 50 MG Patient Own Medication 1 puff DAILY IN 10/31/24 10:00 Hold Atorvastatin Calcium 10 mg HS PO 10/30/24 22:00 11/02/24 21:46 10 MG Sodium Chloride 10 ml Q8HR IV 10/30/24 22:00 11/03/24 05:11 10 ML Ondansetron HCl 4 mg Q4HP PRN IV 10/30/24 14:45 Enoxaparin Sodium 40 mg DAILY SC 10/31/24 10:00 11/03/24 09:03 40 MG Ceftriaxone Sodium 50 ml @ 100 mls/hr DAILY@0900 IV 10/31/24 09:00 11/03/24 09:01 100 MLS/HR Docusate Sodium 100 mg BIDPRN PRN PO 10/30/24 14:45 Acetaminophen 650 mg Q6HP PRN PO 10/30/24 14:45 Acetaminophen/ Hydrocodone Bitart 1 tab Q4HP PRN PO 10/30/24 14:45 Methylprednisolone Sodium Succinate 60 mg Q6H IV 10/31/24 15:00 11/03/24 09:02 60 MG Albuterol 2.5 mg Q4HWA NEB 10/31/24 14:00 11/03/24 10:09 2.5 MG Ipratropium Williamson 0.5 mg Q4HWA NEB 10/31/24 14:00 11/03/24 10:10 0.5 MG Pantoprazole Sodium 40 mg DAILY@0600 PO 11/03/24 06:00 11/03/24 05:01 40 MG Azithromycin 500 mg DAILY PO 11/03/24 10:00 11/03/24 09:03 500 MG Alprazolam 0.25 mg Q8HP PRN PO 11/02/24 16:30 11/02/24 21:46 0.25 MG Laboratory Results Laboratory Tests 11/01/24 04:29 Urinalysis Test 10/31/24 17:40 Urine Color Light-yellow (Yellow) Urine Clarity Clear (Clear) Urine pH 6.0 (5.0-9.0) Urine Specific Barton 1.016 (1.001-1.035) Urine Protein Negative (Negative) Urine Ketones Negative (Negative) Urine Blood Negative /uL (Negative) Urine Nitrite Negative (Negative) Urine Bilirubin Negative (Negative) Urine Urobilinogen Normal mg/dL (Negative) Urine Leukocyte Esterase Negative /uL (Negative) Urine RBC None seen /hpf (0 - 3) Urine Microscopic WBC /HPF (0-3) Urine Squamous Epithelial Cells Few /hpf (<5) Urine Bacteria None seen /hpf (None Seen) Urine Glucose Normal mg/dL (Normal) Microbiology Microbiology Date/Time Source Procedure Growth Status 10/31/24 21:25 Sputum Gram Stain - Final Complete 10/31/24 21:25 Sputum Respiratory Culture - Final Complete 10/30/24 17:50 Nose MRSA Screen - Final Complete Labs and/or images reviewed: Labs reviewed by me Assessment/Plan Assessment/Plan #1 acute on chronic resp failure: cont oxygen #2 copd with exacerbation: cont meds, bronchodilators #3 ?pneumonia- gram positive/neg #4 htn #5 anxiety: xanax Continuing current management. Patient is supposed to be transfer to [facility] today because bed has been available. Plan discussed with: Patient Date of Service: Nov 03, 2024 Billing Provider: SHERRI FAY MD Common Visit Codes: [id number] INP/OBS CARE(HIGH) SHERRI FAY MD Nov 03, 2024 11:49
[2024-11-03 17:16] LABS: COVID19 ANTIGEN SOFIA FIA NEGATIVE (NEGATIVE)
== END 2024-11-03 21:00 | disposition short-term general hospital (02) | DRG 177 ==
LOC: ER 09:26 → EDBD 09:26 → OVERFLOW 14:28 → ER 14:34 → WEST WING 18:37
PROVIDERS: ADMIT Internal Medicine; ATTEND Internal Medicine
DX: J15.69 Pneumonia due to other Gram-negative bacteria (principal); J96.21 Acute and chronic respiratory failure with hypoxia; J44.1 Chronic obstructive pulmonary disease with (acute) exacerbation; J44.0 Chronic obstructive pulmonary disease with (acute) lower respiratory infection; J15.9 Unspecified bacterial pneumonia; I10 Essential (primary) hypertension; E78.5 Hyperlipidemia, unspecified; Z20.822 Contact with and (suspected) exposure to COVID-19; F41.9 Anxiety disorder, unspecified; Z88.8 Allergy status to other drugs, medicaments and biological substances; Z79.899 Other long term (current) drug therapy; Z79.82 Long term (current) use of aspirin; Z83.3 Family history of diabetes mellitus; Z82.49 Family history of ischemic heart disease and other diseases of the circulatory system
CPT/HCPCS: 36415; 71045; 80048; 80053; 81001; 84484; 85025; 86141; 87070; 87081; 87205; 87426; 93005; 93306; 94640; 96365; 99291; 99292; G0378; J2470